=== PATIENT | male | born 1955 | race Caucasian/White ===

== ENCOUNTER 2017-02-01 11:43 | Inpatient (IN) | payer OTHER ==
--- NOTE | 2017-02-01 11:56 | CPEKG ---
Heart Rate: 64 RR Interval: 938 P-R Interval: 204 QRSD Interval: 86 QT Interval: 400 QTC Interval: 413 P [place]: 67 QRS [place]: 2 T Wave [place]: -4 EKG Severity - BORDERLINE ECG - EKG Impression: SINUS RHYTHM EKG Impression: BORDERLINE T ABNORMALITIES, INFERIOR LEADS Electronically Signed By: Rosanna Sullivan 01-Feb-2017 13:57:49
--- NOTE | 2017-02-01 12:15 | EDPHY ---
H & P Stated Complaint: 2 bouts of chest pain this morning and yesterday. Time Seen by Provider: 02/01/17 11:53 HPI/ROS: CHIEF COMPLAINT: Chest pain HISTORY OF PRESENT ILLNESS: This is a 61-year-old male with hyperlipidemia and GERD who presents with substernal chest pain that occurred earlier today. He is traveling here from [place], arrived 2 days ago the. Over the last couple of days he has had some unusual sensations in his chest. This morning he had a 20 minutes episode of chest discomfort that was substernal. He took aspirin 650 mg. He had a similar episode about an hour ago. These are associated with some dizziness. He does not feel short of breath and does not have chest pain when he takes a deep breath. The pain does not radiate. There was no associated clamminess or nausea. He was seen with some pain that radiated into his arm over a year ago and at that time had a cardiac evaluation, no overnight stay and no stress test. He has undergone successful stress testing but it has been 7 or 8 years ago. He has no history of hypertension, diabetes, or tobacco use. His father had coronary artery disease and a myocardial infarction but at age 64 of cancer. He believes his grandparents might have had coronary artery disease but is not certain. REVIEW OF SYSTEMS: A ten point review of systems was performed and is negative with the exception of the items mentioned in the HPI. He has a chronic dry cough, no change. Source: Patient, Family Exam Limitations: No limitations - Personal History Current Tetanus Diphtheria and Acellular Pertussis (TDAP): Yes - Medical/Surgical History Hx Asthma: No Hx Chronic Respiratory Disease: No Hx Diabetes: No Hx Cardiac Disease: No Hx Renal Disease: No Hx Cirrhosis: No Hx Alcoholism: No Hx HIV/AIDS: No Hx Splenectomy or Spleen Trauma: No Other PMH: 1. Hyperlipidemia. 2. GERD. 3. Back surgery - Social History Smoking Status: Never smoked Alcohol Use: Occasionally Drug Use: None Additional Social History: He lives in [place]. He is . - Physical Exam Exam: General Appearance: Alert. Vital signs reviewed. Blood pressure 141/84. Eyes: Pupils equal and round, no conjunctival injection, no discharge. Anicteric. ENT, Mouth: Mucous membranes are moist, no oropharyngeal erythema or edema. Neck: No lymphadenopathy, supple. No jugular venous distension. Respiratory: Lungs are clear to auscultation; no wheezes, rales, or rhonchi. Cardiovascular: Regular rate and rhythm; no murmur, rub, or gallop. Gastrointestinal: Abdomen is soft and nontender, no masses or organomegaly, bowel sounds normal. Skin: Warm and dry, no rashes on exposed skin, normal color. Back: Nontender to palpation over the thoracolumbar spine. No CVAT. Extremities: No lower extremity edema, no calf tenderness or swelling. Neurological: Alert and oriented. Moving all four extremities easily and equally. Psychiatric: Normal affect. Constitutional: Initial Vital Signs Temperature (C) 36.6 C 02/01/17 11:45 Heart Rate 71 02/01/17 11:45 Respiratory Rate 16 02/01/17 11:45 Blood Pressure 141/84 H 02/01/17 11:45 O2 Sat (%) 97 02/01/17 11:45 O2 Delivery Mode Room Air Allergies/Adverse Reactions: contrast dye Allergy (Uncoded 02/01/17 11:49) Home Medications: Medication Instructions Recorded Aspirin EC [Aspirin EC 81 mg (*)] 81 mg PO DAILY 02/01/17 Esomeprazole Magnesium [Nexium 20 mg PO Q2D 02/01/17 24Hr] Ezetimibe/Simvastatin [Vytorin 1 tab PO HS 02/01/17 10-40 mg Tablet] MELOXICAM [Mobic] 7.5 mg PO BID 02/01/17 Multivitamins [Multivitamin (*)] 1 each PO DAILY 02/01/17 Medical Decision Making - Diagnostics EKG Interpretation: 12 lead EKG is interpreted in Trace master View by emergency department physician. Sinus rate with a rate of 64. There are T-wave inversions in leads 3 and AVF. No previous EKGs for comparison. Imaging: Two-view chest x-ray reviewed by me in PACs. No acute pulmonary disease. ED Course/Re-evaluation: 61-year-old male with a history of hyperlipidemia and GERD who presents with 2 episodes of substernal chest pain that occurred this morning. He is currently pain-free. EKG shows some T-wave inversion in leads 3 and AVF. Blood work and chest x-ray pending. He took aspirin earlier this morning. Troponin is 0.098. Patient has remained chest pain-free. I have spoken with Dr. Currie, cardiology, who recommends initiating IV heparin and metoprolol 25 mg twice daily, the 1st dose of which will be given in the emergency department. A concern is that this is unstable angina. I have reviewed EKG, chest x-ray, and blood work findings with the patient and his . I have explained the recommended plan of admission, IV heparin, Cardiology evaluation, and serial troponins with them. They are agreeable to this plan. I have answered their questions to the best of my ability. 1:30 p.m.: Patient is pain-free. Differential Diagnosis: Chest pain including but not limited to myocardial ischemia, pulmonary embolus, chest wall pain, pleural inflammation and pulmonary infectious causes. - Data Points Laboratory Results: Laboratory Results 02/01/17 11:57 02/01/17 11:57 02/01/17 02/01/17 02/01/17 11:57 11:57 11:57 WBC 7.40 10^3/uL 10^3/uL (3.80-9.50) RBC 4.56 10^6/uL 10^6/uL (4.40-6.38) Hgb 14.5 g/dL g/dL (13.7-17.5) Hct 41.2 % % (40.0-51.0) MCV 90.4 fL fL (81.5-99.8) MCH 31.8 pg pg (27.9-34.1) MCHC 35.2 g/dL g/dL (32.4-36.7) RDW 12.0 % % (11.5-15.2) Plt Count 222 10^3/uL 10^3/uL (150-400) MPV 9.5 fL fL (8.7-11.7) Neut % (Auto) 72.0 % % (39.3-74.2) Lymph % (Auto) 19.6 % % (15.0-45.0) [place] % (Auto) 7.3 % % (4.5-13.0) Eos % (Auto) 0.4 % L % (0.6-7.6) Baso % (Auto) 0.3 % % (0.3-1.7) Nucleat RBC Rel Count 0.0 % % (0.0-0.2) Absolute Neuts (auto) 5.33 10^3/uL 10^3/uL (1.70-6.50) Absolute Lymphs (auto) 1.45 10^3/uL 10^3/uL (1.00-3.00) Absolute Monos (auto) 0.54 10^3/uL 10^3/uL (0.30-0.80) Absolute Eos (auto) 0.03 10^3/uL 10^3/uL (0.03-0.40) Absolute Basos (auto) 0.02 10^3/uL 10^3/uL (0.02-0.10) Absolute Nucleated RBC 0.00 10^3/uL 10^3/uL (0-0.01) Immature Gran % 0.4 % % (0.0-1.1) Immature Gran # 0.03 10^3/uL 10^3/uL (0.00-0.10) PT 13.2 SEC SEC (12.0-15.0) INR 1.01 (0.83-1.16) APTT 29.6 SEC SEC (23.0-38.0) Sodium 141 mEq/L mEq/L (134-144) Potassium 4.0 mEq/L mEq/L (3.5-5.2) Chloride 104 mEq/L mEq/L (97-110) Carbon Dioxide 27 mEq/l mEq/l (22-31) Anion Gap 10 mEq/L mEq/L (8-16) BUN 17 mg/dL mg/dL (7-23) Creatinine 1.0 mg/dL mg/dL (0.7-1.3) Estimated GFR > 60 Glucose 116 mg/dL H mg/dL (70-100) Calcium 9.7 mg/dL mg/dL (8.5-10.4) Troponin I 0.098 ng/mL H ng/mL (0-0.034) Medications Given: Discontinued Medications Azithromycin (Zithromax) 500 mg PO ONCE ONE PRN Reason: Protocol Stop: 02/01/17 13:28 Last Admin: 02/01/17 14:13 Dose: 500 mg Heparin Sodium (Porcine) (Heparin Injection) 0 unit IVP EDNOW ONE PRN Reason: Protocol Stop: 02/01/17 13:24 Last Admin: 02/01/17 14:11 Dose: 4,740 units Heparin Sodium (Porcine) (Heparin 50 Units/Ml (Premix)) 500 mls @ 0 mls/hr IV EDNOW ONE; Per Protocol PRN Reason: Protocol Stop: 02/01/17 13:24 Last Admin: 02/01/17 14:03 Dose: 500 mls Metoprolol Tartrate (Lopressor) 25 mg PO ONCE ONE Stop: 02/01/17 13:24 Last Admin: 02/01/17 13:32 Dose: 25 mg Departure - Departure Disposition: [facility] Inpatient Acute Clinical Impression: Chest pain Qualifiers: Chest pain type: chest pain due to myocardial ischemia Ischemic chest pain type : unstable angina pectoris Qualified Code(s): I20.0 - Unstable angina Condition: Good
[2017-02-01 12:18] LABS: % IMMATURE GRANULYOCYTES 0.4 % (0.0-1.1); ABSOLUTE IMMATURE GRANULOCYTES 0.03 10^3/uL (0.00-0.10); ADD DIFF? NO; ADD MORPH? NO; ADD SCAN? NO; ATYPICAL LYMPHOCYTE FLAG 0 (0-99); FRAGMENT RBC FLAG 0 (0-99); HEMATOCRIT 41.2 % (40.0-51.0); HEMOGLOBIN 14.5 g/dL (13.7-17.5); LEFT SHIFT FLG 0 (0-99); LIPEMIA HEMOLYSIS FLAG 90 (0-99); MEAN CELL HEMOGLOBIN 31.8 pg (27.9-34.1); MEAN CELL HEMOGLOBIN CONCENTR. 35.2 g/dL (32.4-36.7); MEAN CELL VOLUME 90.4 fL (81.5-99.8); MEAN PLATELET VOLUME 9.5 fL (8.7-11.7); PLATELET CLUMPS FLAG 10 (0-99); PLATELET COUNT 222 10^3/uL (150-400); RED BLOOD CELL COUNT 4.56 10^6/uL (4.40-6.38)
[2017-02-01 12:26] LABS: ANION GAP 10 mEq/L (8-16); CALCIUM 9.7 mg/dL (8.5-10.4); CARBON DIOXIDE 27 mEq/l (22-31); CHLORIDE 104 mEq/L (97-110); GLOMERULAR FILTRATION RATE > 60; GLUCOSE 116 mg/dL (70-100); SODIUM 141 mEq/L (134-144)
[2017-02-01 12:38] LABS: TROPONIN I 0.098 ng/mL (0-0.034)
[2017-02-01] MEDS ORDERED: HEPARIN 10,000 UNIT/10 ML MDV IVP ONE (13:23)
[2017-02-01] MEDS ORDERED: HEPARIN/DEXTROSE 500 ML IV ONE (13:23)
[2017-02-01] MEDS ORDERED: METOPROLOL TARTRATE 25 MG TAB PO ONE (13:23)
[2017-02-01] MEDS ORDERED: AZITHROMYCIN 250 MG TAB PO ONE (13:27)
[2017-02-01 13:32] LABS: APTT 29.6 SEC (23.0-38.0); INR 1.01 (0.83-1.16); PROTIME(PATIENT) 13.2 SEC (12.0-15.0)
[2017-02-01] MEDS ORDERED: NITROGLYCERIN 0.4 MG BTL SL PRN (13:58)
[2017-02-01] MEDS ORDERED: HEPARIN 10,000 UNIT/10 ML MDV IVP PRN (14:02)
--- NOTE | 2017-02-01 14:16 | PDGENHP ---
History and Physical - Chief Complaint Chest discomfort - History of Present Illness this is a 61-year-old male who flew in from [place] on [place] the developed some chest discomfort yesterday while resting. Discomfort lasted for 5-10 minutes and went away. His 2nd episode of chest discomfort this morning at 9:30 a.m. that lasted 20-30 minutes this time. He took 2 aspirins and went away. He experienced a 3rd episode of chest discomfort while walking in to [place] at the [employer]. This episode lasted for 10 minutes and was relieved after resting in the car on his way over to the emergency department. He denies any sharp or squeezing chest pain. He does endorse some mild shortness of breath. she he has had a stress test before, but has not had 1 for "many years". History Information - Allergies/Home Medication List Allergies/Adverse Reactions: contrast dye Allergy (Uncoded 02/01/17 11:49) Home Medications: Aspirin EC [Aspirin EC 81 mg (*)] 81 mg PO DAILY 02/01/17 [Last Taken 02/01/17] Esomeprazole Magnesium [Nexium 24Hr] 20 mg PO Q2D 02/01/17 [Last Taken 02/01/17] Ezetimibe/Simvastatin [Vytorin 10-40 mg Tablet] 1 tab PO HS 02/01/17 [Last Taken 01/31/17] MELOXICAM [Mobic] 7.5 mg PO BID 02/01/17 [Last Taken 01/29/17] Multivitamins [Multivitamin (*)] 1 each PO DAILY 02/01/17 [Last Taken 02/01/17] I have personally reviewed and updated: family history, medical history, social history, surgical history - Past Medical History hyperlipidemia - Surgical History Additional surgical history: lumbar decompression in 2016 - Family History Positive for: CAD ( father had a MT in his 40s) - Social History Smoking Status: Never smoked Alcohol Use: Occasionally (2 glasses wine per night) Drug Use: None Review of Systems ROS: 10pt was reviewed & negative except for what was stated in HPI & below Physical Exam Temp Pulse Resp BP Pulse Ox 36.6 C 76 16 113/81 H 96 02/01/17 11:45 02/01/17 12:50 02/01/17 12:50 02/01/17 12:50 02/01/17 12:50 Constitutional: no apparent distress, appears nourished, not in pain Eyes: PERRL, anicteric sclera, EOMI Ears, Nose, Mouth, Throat: moist mucous membranes, hearing normal, ears appear normal, no oral mucosal ulcers Cardiovascular: regular rate and rhythym, no murmur, rub, or gallop, No edema Respiratory: no respiratory distress, no rales or rhonchi, clear to auscultation Gastrointestinal: normoactive bowel sounds, soft, non-tender abdomen, no palpable masses, No guarding, No rebound Genitourinary: no bladder fullness, no bladder tenderness Skin: warm, normal color, no rashes or abrasions, no fluctuance, no induration, No mottled Musculoskeletal: full muscle strength, no muscle tenderness, normal joint ROM, no joint effusions Neurologic: AAOx3, CN II-XII Intact, No facial droop Psychiatric: interacting appropriately, not anxious, not encephalopathic, thought process linear Lab Data & Imaging Review 02/01/17 11:57 02/01/17 11:57 WBC 7.40 10^3/uL (3.80-9.50) 02/01/17 11:57 RBC 4.56 10^6/uL (4.40-6.38) 02/01/17 11:57 Hgb 14.5 g/dL (13.7-17.5) 02/01/17 11:57 Hct 41.2 % (40.0-51.0) 02/01/17 11:57 MCV 90.4 fL (81.5-99.8) 02/01/17 11:57 MCH 31.8 pg (27.9-34.1) 02/01/17 11:57 MCHC 35.2 g/dL (32.4-36.7) 02/01/17 11:57 RDW 12.0 % (11.5-15.2) 02/01/17 11:57 Plt Count 222 10^3/uL (150-400) 02/01/17 11:57 MPV 9.5 fL (8.7-11.7) 02/01/17 11:57 Neut % (Auto) 72.0 % (39.3-74.2) 02/01/17 11:57 Lymph % (Auto) 19.6 % (15.0-45.0) 02/01/17 11:57 [place] % (Auto) 7.3 % (4.5-13.0) 02/01/17 11:57 Eos % (Auto) 0.4 % (0.6-7.6) L 02/01/17 11:57 Baso % (Auto) 0.3 % (0.3-1.7) 02/01/17 11:57 Nucleat RBC Rel Count 0.0 % (0.0-0.2) 02/01/17 11:57 Absolute Neuts (auto) 5.33 10^3/uL (1.70-6.50) 02/01/17 11:57 Absolute Lymphs (auto) 1.45 10^3/uL (1.00-3.00) 02/01/17 11:57 Absolute Monos (auto) 0.54 10^3/uL (0.30-0.80) 02/01/17 11:57 Absolute Eos (auto) 0.03 10^3/uL (0.03-0.40) 02/01/17 11:57 Absolute Basos (auto) 0.02 10^3/uL (0.02-0.10) 02/01/17 11:57 Absolute Nucleated RBC 0.00 10^3/uL (0-0.01) 02/01/17 11:57 Immature Gran % 0.4 % (0.0-1.1) 02/01/17 11:57 Immature Gran # 0.03 10^3/uL (0.00-0.10) 02/01/17 11:57 PT 13.2 SEC (12.0-15.0) 02/01/17 11:57 INR 1.01 (0.83-1.16) 02/01/17 11:57 APTT 29.6 SEC (23.0-38.0) 02/01/17 11:57 Sodium 141 mEq/L (134-144) 02/01/17 11:57 Potassium 4.0 mEq/L (3.5-5.2) 02/01/17 11:57 Chloride 104 mEq/L (97-110) 02/01/17 11:57 Carbon Dioxide 27 mEq/l (22-31) 02/01/17 11:57 Anion Gap 10 mEq/L (8-16) 02/01/17 11:57 BUN 17 mg/dL (7-23) 02/01/17 11:57 Creatinine 1.0 mg/dL (0.7-1.3) 02/01/17 11:57 Estimated GFR > 60 02/01/17 11:57 Glucose 116 mg/dL (70-100) H 02/01/17 11:57 Calcium 9.7 mg/dL (8.5-10.4) 02/01/17 11:57 Troponin I 0.098 ng/mL (0-0.034) H 02/01/17 11:57 Visualized and Interpreted Chest x-ray results: Yes Chest X-Ray results: no infiltrate, normal, normal heart size Visualized and Interpreted EKG results: Yes EKG Interpretation: Positive for: normal sinsus rhythm ( 64 beats per minute), T waves inversion ( inferior leads) Assessment & Plan Assessment: This is a 61-year-old male with history of dyslipidemia and family history for early coronary disease presenting with: # suspected acute coronary syndrome with elevated troponin and T-wave inversion in the inferior leads - she has been started on a heparin drip in the emergency department has already received aspirin and beta-jessica. The heparin drip will be continued. Morphine has been ordered for pain as well as nitroglycerin. Dr. Currie from [facility] has been consulted as well for further evaluation and to consider taking the patient to the chemical laboratory technician as indicated. # history of hyperlipidemia - will check fasting lipids and continue home dose of Vytorin patient will be admitted the hospital under inpatient status
[2017-02-01] MEDS ORDERED: HEPARIN/DEXTROSE 500 ML IV SCH (14:30)
[2017-02-01] MEDS ORDERED: ACETAMINOPHEN 325 MG TAB PO PRN (15:45)
--- NOTE | 2017-02-01 15:57 | CPEKG ---
Heart Rate: 55 RR Interval: 1091 P-R Interval: 228 QRSD Interval: 92 QT Interval: 444 QTC Interval: 425 P [place]: 73 QRS [place]: -6 T Wave [place]: 12 EKG Severity - ABNORMAL ECG - EKG Impression: SINUS RHYTHM EKG Impression: FIRST DEGREE AV BLOCK Electronically Signed By: Jamey Pineda 01-Feb-2017 23:41:54
[2017-02-01] MEDS: EZETIMIBE 10 MG TAB PO SCH (20:05)
[2017-02-01] MEDS: ATORVASTATIN CALCIUM 20 MG TAB PO SCH (20:05)
[2017-02-01] MEDS: METOPROLOL TARTRATE 25 MG TAB PO SCH (20:07)
[2017-02-01] MEDS ORDERED: EZETIMIBE PO SCH (21:00)
[2017-02-01] MEDS ORDERED: SIMVASTATIN PO SCH (21:00)
--- NOTE | 2017-02-01 21:19 | GCON ---
[f rep st] CONSULTATION This is a 61-year-old male who flew in from [place] on Thursday. The patient developed some chest disco mfort yesterday while resting. It lasted about 5-10 minutes and then it went away. The 2nd episode of discomfort was this morning at 9:30 a.m. when he was resting. Again, this lasted about 20-30 mi nutes. It went away after he took a couple of aspirins. He experienced a 3rd episode of chest disc omfort while walking into a restaurant. The episode lasted about 10 minutes and it was relieved whi le he was driving to the emergency room. He denies any radiation. He mentioned some mild shortness of breath. He mentioned that the chest pain is worse when sitting up, better when lying down. The re is chest pain with a deep breath. He has a family history of coronary artery disease and [place] in h is father at the age of 40. He has known dyslipidemia for a number of years. He is a nonsmoker. N o alcohol use. He has had contrast allergies. PAST MEDICAL HISTORY: GERD and dyslipidemia. MEDICATIONS: 1. Aspirin. 2. Nexium. 3. Vytorin. 4. Mobic. 5. Multivitamin. ALLERGIES: Contrast IV dye. FAMILY HISTORY: Positive for coronary artery disease. SOCIAL HISTORY: Nonsmoker. No significant alcohol use. PHYSICAL EXAM: VITAL SIGNS: Blood pressure of 113/81, pulse of 96, respiratory rate 16, temperatur e 36.6. CONSTITUTIONAL: No apparent distress. Appears nourished. Not in pain. EYES: Pupils equ al, reacting to light, accommodating. Anicteric sclerae. EOMI. EARS, NOSE, MOUTH and THROAT: Joaquim st mucous membranes. Hearing is normal. Ears appear normal. No oral mucosal ulcers. CARDIOVASCUL AR: Regular rate and rhythm. No murmurs, rubs or gallops. No edema. RESPIRATORY: No respiratory distress. No rales or rhonchi. Clear to auscultation. GI: Normoactive bowel sounds. Soft, nont susan. ABDOMEN: No palpable masses. No guarding. No rebound. : No bladder fullness. No blad stefani tenderness. SKIN: Warm. Normal color. No rashes or abrasion. No induration. MUSCULOSKELETA L: Full muscle strength. No muscle tenderness. Normal joint ROM. No joint effusion. NEUROLOGIC: Alert and oriented x3. Cranial nerves intact. PSYCHIATRIC: Interacting appropriately. LAB DATA: White count is normal. Creatinine is 1, glucose 116. Troponin 0.098. EKG showed normal sinus rhythm with nonspecific T-wave inversions in lead III and aVF. IMPRESSION AND PLAN: 1. This is a 61-year-old with positive family history of early coronary artery disease, dyslipidemi a who comes in for evaluation of chest pain at rest as well as with exertion and nonspecific T-wave inversion and mild troponin elevation. Based on the symptomatology, it appears to be acute coronary syndrome and hence we will just start with aspirin, metoprolol 25 b.i.d., heparin. We will also ch preston an echocardiogram. The patient has a high probability of coronary artery disease and hence we w ill perform cardiac catheterization with a plan for PCI. I have explained to the patient the risks and benefits of the procedure. He understands it and is agreeable to it. Considering his IV contra st allergy, we will prepare him with Solu-Medrol as well as famotidine and Benadryl. We will also g et an echocardiogram. 2. Dyslipidemia. This seems to be in good control. Thank you for letting me participate in the patient's care. Feel free to call me for questions. /[id number]/MODL
[2017-02-01] MEDS: TEMAZEPAM 15 MG CAP PO PRN (21:57)
[2017-02-02 03:25] LABS: % IMMATURE GRANULYOCYTES 0.3 % (0.0-1.1); ABSOLUTE IMMATURE GRANULOCYTES 0.02 10^3/uL (0.00-0.10); ADD DIFF? NO; ADD MORPH? NO; ADD SCAN? NO; ATYPICAL LYMPHOCYTE FLAG 0 (0-99); FRAGMENT RBC FLAG 0 (0-99); HEMATOCRIT 39.4 % (40.0-51.0); HEMOGLOBIN 13.6 g/dL (13.7-17.5); LEFT SHIFT FLG 0 (0-99); LIPEMIA HEMOLYSIS FLAG 90 (0-99); MEAN CELL HEMOGLOBIN 31.6 pg (27.9-34.1); MEAN CELL HEMOGLOBIN CONCENTR. 34.5 g/dL (32.4-36.7); MEAN CELL VOLUME 91.4 fL (81.5-99.8); MEAN PLATELET VOLUME 9.3 fL (8.7-11.7); PLATELET CLUMPS FLAG 10 (0-99); PLATELET COUNT 204 10^3/uL (150-400); RED BLOOD CELL COUNT 4.31 10^6/uL (4.40-6.38); RED CELL DISTRIBUTION WIDTH 12.1 % (11.5-15.2)
[2017-02-02 04:33] LABS: ANION GAP 5 mEq/L (8-16); CALCIUM 8.9 mg/dL (8.5-10.4); CARBON DIOXIDE 29 mEq/l (22-31); CHLORIDE 105 mEq/L (97-110); CHOLESTEROL 170 mg/dL (140-220); CHOLESTEROL/HDL RATIO 2.88 RATIO (1.00-4.97); CREATININE 1.1 mg/dL (0.7-1.3); GLOMERULAR FILTRATION RATE > 60; GLUCOSE 97 mg/dL (70-100); HIGH DENSITY LIPOPROTEIN 59 mg/dL (40-65); LDL/HDL RATIO 1.56 RATIO (1.00-3.64); LOW DENSITY LIPOPROTEIN 92 mg/dL (80-100); MAGNESIUM 1.9 mg/dL (1.6-2.3); NON-HIGH DENSITY LIPOPROTEIN 111 mg/dL (90-129); SODIUM 139 mEq/L (134-144); TRIGLYCERIDE 97 mg/dL (40-150); VERY LOW DENSITY LIPOPROTEINS 19 mg/dL (8-25)
[2017-02-02 05:21] LABS: INR 1.15 (0.83-1.16); PROTIME(PATIENT) 14.6 SEC (12.0-15.0)
[2017-02-02] MEDS ORDERED: ASPIRIN EC 325 MG TAB PO ONE ×2 (06:00→11:02)
[2017-02-02] MEDS ORDERED: FAMOTIDINE 20 MG TAB PO ONE (06:00)
[2017-02-02] MEDS ORDERED: diphenhydrAMINE 25 MG CAP PO ONE (06:00)
[2017-02-02] MEDS ORDERED: NS 1,000 ML IV ONE (06:00)
[2017-02-02] MEDS ORDERED: DIAZEPAM 5 MG TAB PO ONE (06:00)
[2017-02-02] MEDS ORDERED: methylPREDNISolone SOD SUCC 125 MG/2 ML VIAL IVP ONE (06:00)
[2017-02-02 07:08] LABS: APTT 159.8 SEC (23.0-38.0)
[2017-02-02] MEDS ORDERED: FAMOTIDINE 20 MG/NACL 50 ML IV ONE (08:30)
[2017-02-02] MEDS ORDERED: HEPARIN 10,000 UNIT/10 ML MDV ONE (08:40)
[2017-02-02] MEDS ORDERED: VERAPAMIL 5 MG/2 ML VIAL ONE (08:40)
[2017-02-02] MEDS ORDERED: LIDOCAINE 1% 30 ML SDV ONE (08:40)
[2017-02-02] MEDS ORDERED: MIDAZOLAM 2 MG/2 ML VIAL ONE (08:40)
[2017-02-02] MEDS ORDERED: fentaNYL 100 MCG/2 ML INJ ONE (08:40)
[2017-02-02] MEDS ORDERED: IOPAMIDOL (ISOVUE 370) 100 ML BTL IV ONE ×2 (08:43→09:41)
[2017-02-02] MEDS ORDERED: ENOXAPARIN 40 MG/0.4 ML SYR SC SCH (09:00)
[2017-02-02] MEDS ORDERED: methylPREDNISolone SOD SUCC 125 MG/2 ML VIAL ONE (09:17)
[2017-02-02] MEDS ORDERED: ATROPINE SULFATE 1 MG/10 ML SYR ONE (09:41)
[2017-02-02] MEDS ORDERED: NITROGLYCERIN 1,500 MCG/15 ML VIAL MISC ONE (09:41)
[2017-02-02] MEDS ORDERED: PRASUGREL HCL 10 MG TAB ONE ×2 (10:06→10:07)
[2017-02-02] MEDS ORDERED: ATROPINE SULFATE 1 MG/10 ML SYR IVP PRN (10:32)
[2017-02-02] MEDS ORDERED: PRASUGREL HCL 10 MG TAB PO ONE (10:32)
[2017-02-02] MEDS ORDERED: ONDANSETRON 4 MG/2 ML VIAL IVP PRN (10:32)
[2017-02-02] MEDS ORDERED: ONDANSETRON DISINTEGRATING 4 MG TAB ONE (10:34)
--- NOTE | 2017-02-02 10:35 | SOAPPROG ---
SOAP Progress Note Assessment/Plan: Assessment: 1. Non Q IL Plan: 02/02/17 10:34 Objective: Vital Signs Temp Pulse Resp BP Pulse Ox 36.4 C 66 16 145/76 H 93 02/02/17 03:35 02/02/17 08:00 02/02/17 03:35 02/02/17 08:00 02/02/17 08:00 Laboratory Results 02/02/17 03:10 02/02/17 03:10 02/01/17 02/02/17 02/03/17 05:59 05:59 05:59 Intake Total 751 Balance 751 PT 14.6 SEC (12.0-15.0) 02/02/17 03:10 INR 1.15 (0.83-1.16) 02/02/17 03:10 ICD10 Worksheet Patient Problems: Problems Problem Status Onset Chest pain Acute Acute coronary syndrome Acute
--- NOTE | 2017-02-02 10:39 | PDDXCAT ---
Diagnostic Cath Note - . Date: 02/03/17 Belt Maker Helper: Stuart Indication: CCC Class III and IV angina on medical treatment - Procedure Access: right wrist Procedure: left heart catheterization, coronary angiography - Materials Left Heart Cath size: 5F Left Heart Cath materials: pigtail, other (Site Seer) - Findings-Left Heart Catheterization LM: Unobstructed LAD: Unobstructed LCX: Unobstructed RCA: proximal ulcer with 95% mid vessel stenosis EDP: 15 mmHg LVEF: 55 Wall motion: small area of mild hypokinesis mid inferior wall. Complications: none Estimated blood loss: <50ml Closure method: TR Band Assessment: Non Q ND with ulceration and obstruction of the proximal RCA. Plan: PCI Intervention: 1. IV Heparin 2. Pre-dilitation with 3.0 by 12 mm Cmpliant balloon. ( 3 inflations) 3. 3.5 by 20 mm SYnergy stent. 4. IVUS with assement of the proximal RCA. 5. Post dilitation with 4.0 by 15 mm Non-compliant balloon (2 inflations) After reviewing diagnostic angiograms, it was elected to proceed with PCI. Therapeutic act was confirmed. RCA was engaged with a 6 mongolian JR4 guide. A 0.014 luge wire was used to cross the stenosis and placed in the distal vessel. The stenosis was pre-dilated with a 3.0 by 12 mm compliant balloon. A 3.5 by 20 mm Synergy stent was placed across the stenosis and proximal ulcer and deployed. Intravascular ultrasound was used to evaluate the stent and the proximal vessel. The stent was post dilated with a 4.0 by 15 mm Non-compliant balloon. Proximal vessel was free of significant stenosis. Conclusion: Successful PCI and stenting of the RCA. Patient Problems: Problems Problem Status Onset Acute coronary syndrome Acute Chest pain Acute
[2017-02-02] MEDS ORDERED: NS 1,000 ML IV SCH (10:45)
[2017-02-02] MEDS: ASPIRIN EC 81 MG TAB PO SCH (11:50)
[2017-02-02] MEDS: METOPROLOL TARTRATE 25 MG TAB PO SCH ×2 (12:29→19:43)
--- NOTE | 2017-02-02 14:08 | CPEKG ---
Heart Rate: 66 RR Interval: 909 P-R Interval: 200 QRSD Interval: 82 QT Interval: 420 QTC Interval: 441 P [place]: 72 QRS [place]: -18 T Wave [place]: -19 EKG Severity - ABNORMAL ECG - EKG Impression: SINUS RHYTHM EKG Impression: BORDERLINE LEFT AXIS DEVIATION EKG Impression: ABNORMAL T, CONSIDER ISCHEMIA, INFERIOR LEADS -- More pronounced since January EKG Impression: 2016 Electronically Signed By: Wilder Solorio 02-Feb-2017 15:22:21
--- NOTE | 2017-02-02 17:21 | HOSPPROG ---
Hospitalist Progress Note Assessment/Plan: DIAGNOSES: -Acute coronary syndrome/non [facility] -Atherosclerosis of right coronary artery with 95 percent ulcerated plaque stenosis -status post stenting of right coronary artery followed by intravascular ultrasound PLANS: -continued monitoring here for stability under Dr. Stuart's direction -platelet inhibition with Effient and aspirin -continue Vytorin -beta-jessica SUBJECTIVE: Currently no chest pain. No pain at angiography access site, no shortness of breath or nausea, has eaten well. OBJECTIVE Vitals reviewed: Stable without fever Exterior Door Installer, my review: Sinus rhythm Exam: alert oriented skin warm dry color ok resps not labored lungs clear BSs heart regular abd soft nondistended nontender, bowel sounds present limbs warm, no edema iv site ok I reviewed his case with Dr. Stuart today. Objective: Vital Signs Temp Pulse Resp BP Pulse Ox 36.4 C 68 20 116/75 93 02/02/17 15:34 02/02/17 15:34 02/02/17 15:34 02/02/17 15:34 02/02/17 15:34 Laboratory Results 02/02/17 03:10 02/02/17 03:10 02/01/17 02/02/17 02/03/17 06:59 06:59 06:59 Intake Total 751 Balance 751 PT 14.6 SEC (12.0-15.0) 02/02/17 03:10 INR 1.15 (0.83-1.16) 02/02/17 03:10 ICD10 Worksheet Patient Problems: Problems Problem Status Onset Acute coronary syndrome Acute Chest pain Acute
--- NOTE | 2017-02-02 17:56 | PDDCSUM ---
Discharge Summary Discharge Summary: DISCHARGE DIAGNOSES: -acute non ST elevation [place] -Right coronary artery stenosis with 95% ulcerated proximal plaque CONSULTANTS: -Dr. Ethan Stuart PROCEDURES: -coronary angiography -Drug-eluting stent to right coronary artery -intravascular ultrasound HOSPITAL COURSE SUMMARY: This patient presented to the hospital with suspicious anginal chest pain and elevated cardiac enzymes. He did not have heart failure or arrhythmia. The enzyme elevations were minimal. He underwent coronary angiography showing good left ventricular ejection fraction but he had a 95% stenosis of the right coronary artery which was ulcerated. This was treated with a drug-eluting stent with good result. The procedure was well tolerated without complication. This was performed via radial artery access The patient has chronic hyperlipidemia and is already on Vytorin for this purpose. At this time he started on aspirin and Effient as well as some beta- jessica. He will need follow-up in cardiology but he lives in [place] and is planning to fly there tomorrow. The patient's primary care doctor will be contacted by Dr. Ethan Stuart to review patient's clinical course and recommendations for follow-up. He can arrange for cardiology evaluation there. MEDICATION CHANGES: Addition of Effient 10 mg and aspirin 81 mg, as well as metoprolol and p.r.n. nitroglycerin FOLLOW-UP PLAN: With his primary care physician in [place] and referral to a math interventionist there
[2017-02-02] MEDS: ATORVASTATIN CALCIUM 20 MG TAB PO SCH (19:42)
[2017-02-02] MEDS: EZETIMIBE 10 MG TAB PO SCH (19:42)
[2017-02-02] MEDS: TEMAZEPAM 15 MG CAP PO PRN (22:11)
[2017-02-03 03:39] LABS: % IMMATURE GRANULYOCYTES 0.6 % (0.0-1.1); ABSOLUTE IMMATURE GRANULOCYTES 0.07 10^3/uL (0.00-0.10); ADD DIFF? NO; ADD MORPH? NO; ADD SCAN? NO; ATYPICAL LYMPHOCYTE FLAG 0 (0-99); FRAGMENT RBC FLAG 0 (0-99); HEMATOCRIT 38.7 % (40.0-51.0); HEMOGLOBIN 13.6 g/dL (13.7-17.5); LEFT SHIFT FLG 10 (0-99); LIPEMIA HEMOLYSIS FLAG 90 (0-99); MEAN CELL HEMOGLOBIN 32.3 pg (27.9-34.1); MEAN CELL HEMOGLOBIN CONCENTR. 35.1 g/dL (32.4-36.7); MEAN CELL VOLUME 91.9 fL (81.5-99.8); MEAN PLATELET VOLUME 9.7 fL (8.7-11.7); PLATELET CLUMPS FLAG 0 (0-99); PLATELET COUNT 211 10^3/uL (150-400); RED BLOOD CELL COUNT 4.21 10^6/uL (4.40-6.38); RED CELL DISTRIBUTION WIDTH 12.1 % (11.5-15.2)
[2017-02-03 04:15] LABS: ALBUMIN 3.9 g/dL (3.5-5.0); ANION GAP 10 mEq/L (8-16); ASPARTATE AMINOTRANSFERASE 29 IU/L (17-59); BILIRUBIN,TOTAL 0.7 mg/dL (0.1-1.4); CALCIUM 9.5 mg/dL (8.5-10.4); CARBON DIOXIDE 23 mEq/l (22-31); CHLORIDE 108 mEq/L (97-110); GLOMERULAR FILTRATION RATE > 60; GLUCOSE 124 mg/dL (70-100); LACTATE DEHYDROGENASE 380 IU/L (313-618); MAGNESIUM 1.9 mg/dL (1.6-2.3); POTASSIUM 4.4 mEq/L (3.5-5.2); SODIUM 141 mEq/L (134-144)
[2017-02-03 07:44] VITALS: BP 121/62; PULSE 64; RESP 19; TEMP 98.4; O2SAT 98
[2017-02-03] MEDS: METOPROLOL TARTRATE 25 MG TAB PO SCH (08:08)
[2017-02-03] MEDS: ASPIRIN EC 81 MG TAB PO SCH (08:08)
--- NOTE | 2017-02-03 08:54 | CPEKG ---
Heart Rate: 63 RR Interval: 952 P-R Interval: 208 QRSD Interval: 88 QT Interval: 412 QTC Interval: 422 P [place]: 71 QRS [place]: -7 T Wave [place]: -6 EKG Severity - BORDERLINE ECG - EKG Impression: SINUS RHYTHM EKG Impression: BORDERLINE T ABNORMALITIES, INFERIOR LEADS-- Less pronounced since February 02, EKG Impression: 2017 Electronically Signed By: Wilder Solorio 03-Feb-2017 18:19:37
[2017-02-03] MEDS ORDERED: NON-FORMULARY NEW DRUG (Esomeprazole Magnesium [Nexium 24hr] 20 MG) PO SCH (09:00)
[2017-02-03] MEDS ORDERED: PANTOPRAZOLE SODIUM 40 MG TAB PO SCH (09:00)
[2017-02-03] MEDS ORDERED: PRASUGREL HCL 10 MG TAB PO SCH (09:00)
--- NOTE | 2017-02-03 10:06 | PDDCSUM ---
Discharge Summary Discharge Summary: DISCHARGE DIAGNOSES: -acute non ST elevation DC -Right coronary artery stenosis with 95% ulcerated proximal plaque CONSULTANTS: -Dr. Ethan Stuart PROCEDURES: -coronary angiography -Drug-eluting stent to right coronary artery -intravascular ultrasound HOSPITAL COURSE SUMMARY: This patient presented to the hospital with suspicious anginal chest pain and elevated cardiac enzymes. He did not have heart failure or arrhythmia. The enzyme elevations were minimal. He underwent coronary angiography showing good left ventricular ejection fraction but he had a 95% stenosis of the right coronary artery which was ulcerated. This was treated with a drug-eluting stent with good result. The procedure was well tolerated without complication. This was performed via radial artery access The patient has chronic hyperlipidemia and is already on Vytorin for this purpose. At this time he started on aspirin and Effient as well as some beta- jessica. He will need follow-up in cardiology but he lives in [place] and is planning to fly there tomorrow. The patient's primary care doctor will be contacted by Dr. Ethan Stuart to review patient's clinical course and recommendations for follow-up. He can arrange for cardiology evaluation there. MEDICATION CHANGES: Addition of Effient 10 mg and aspirin 81 mg, as well as metoprolol and p.r.n. nitroglycerin FOLLOW-UP PLAN: With his primary care physician in [place] and referral to a brazer resistance there
== END 2017-02-03 10:38 | disposition home or self-care (01) | DRG 247 ==
LOC: F2W 14:32
PROVIDERS: ADMIT Family Medicine; ATTEND Internal Medicine
PROC: 027034Z Dilation of Coronary Artery, One Artery with Drug-eluting Intraluminal Device, Percutaneous Approach (ICD-10-PCS; principal; 2017-02-02)
PROC: B2151ZZ Fluoroscopy of Left Heart using Low Osmolar Contrast (ICD-10-PCS; principal; 2017-02-02)
PROC: 4A023N7 Measurement of Cardiac Sampling and Pressure, Left Heart, Percutaneous Approach (ICD-10-PCS; principal; 2017-02-02)
PROC: B2111ZZ Fluoroscopy of Multiple Coronary Arteries using Low Osmolar Contrast (ICD-10-PCS; principal; 2017-02-02)
PROC: B240ZZ3 Ultrasonography of Single Coronary Artery, Intravascular (ICD-10-PCS; principal; 2017-02-02)
DX: I21.4 Non-ST elevation (NSTEMI) myocardial infarction (principal); I25.10 Atherosclerotic heart disease of native coronary artery without angina pectoris; K21.9 Gastro-esophageal reflux disease without esophagitis; E78.5 Hyperlipidemia, unspecified
CPT/HCPCS: 85520-90; 96374; C1725; C1753; C1769; C1874; C1887; C9600; J0461; J1200; J1644; J2250; J3010; Q9967